=== PATIENT | female | born 1970 | race Caucasian/White ===

== ENCOUNTER 2018-01-17 14:18 | Emergency (ER) | payer OTHER ==
[~2018-01-17] VITALS: Ht 157.5 cm; Wt 52.0 kg
[2018-01-17 15:14] LABS: INR 1.1; PROTHROMBIN TIME 11.4 sec (9.4-11.6)
[2018-01-17 15:16] LABS: BASOPHILS % 0.3 % (0.0-2.0); EOSINOPHILS % 0.1 % (0.0-5.0); HEMATOCRIT. 37.9 % (36.0-48.0); HEMOGLOBIN. 13.1 g/dL (12.0-16.0); LYMPHOCYTES % 25.7 % (20.0-50.0); MEAN CORPUSCULAR HEMOGLOBIN 30.1 pg (28.0-32.0); MEAN CORPUSCULAR VOLUME 87.5 fL (81.0-99.0); MONOCYTES % 6.8 % (2.0-8.0); NEUTROPHILS % 67.1 % (40.0-76.0); PLATELET 223 x1000/uL (130-400); RED BLOOD CELL COUNT 4.33 mill/uL (4.2-5.4); RED CELL DISTRIBUTION WIDTH 12.7 % (11.6-14.6)
[2018-01-17 15:18] LABS: CHLORIDE 106 mEq/L (98-107)
[2018-01-17] MEDS ORDERED: KETOROLAC 15MG/ML VIAL IV ONE (18:15)
[2018-01-17 18:35] VITALS: BP 127/69
== END 2018-01-17 18:38 | disposition home or self-care (01) ==
LOC: ER 15:04
DX: S20.219A Contusion of unspecified front wall of thorax, initial encounter (principal); R73.9 Hyperglycemia, unspecified; R00.0 Tachycardia, unspecified; V49.88XA Car occupant (driver) (passenger) injured in other specified transport accidents, initial encounter; Y93.89 Activity, other specified; Y92.89 Other specified places as the place of occurrence of the external cause; Y99.8 Other external cause status
CPT/HCPCS: 36415; 71045; 80053; 83880; 84484; 85025; 85610; 93005; 99285; J1885; Z7610

== ENCOUNTER 2023-07-05 09:50 | Emergency (ER) | payer MEDICAID, OTHER ==
[~2023-07-05] VITALS: Ht 157.5 cm; Wt 69.0 kg
[2023-07-05 09:52] VITALS: O2SAT 95
[2023-07-05] MEDS ORDERED: DIPHENHYDRAMINE 50MG/ML VIAL IM PRN (10:15)
[2023-07-05] MEDS ORDERED: KETOROLAC 60MG/2ML VIAL IM ONE (10:15)
[2023-07-05 13:02] VITALS: BP 128/79; PULSE 77; RESP 12; TEMP 97.8
== END 2023-07-05 13:03 | disposition home or self-care (01) ==
LOC: ER 09:50
DX: R51.9 Headache, unspecified (principal)
CPT/HCPCS: 70450; 96372; 99285; J1885; Z7610; J1200